=== PATIENT | female | born 2000 | race Caucasian/White ===

== ENCOUNTER 2020-09-20 05:27 | Emergency (ER) | payer SELFPAY ==
[2020-09-20] MEDS ORDERED: Ketorolac 30 MG/ML SDV IVPUSH ONE (05:47)
[2020-09-20] MEDS ORDERED: Sodium Chloride 0.9% 10 ML Syringe FLUSH PRN (05:47)
[2020-09-20] MEDS ORDERED: Sodium Chloride 0.9% 1,000 ML IV ONE (05:47)
[2020-09-20] MEDS ORDERED: Sodium Chloride 0.9% 2.5 ML Syringe FLUSH PRN (05:47)
[2020-09-20] MEDS ORDERED: Ondansetron 4 MG/2 ML SDV IVPUSH ONE (05:47)
[2020-09-20 06:12] LABS: BLOOD UREA NITROGEN,BUN 16 mg/dL (7.0-18.0); CARBON DIOXIDE,CO2 26.6 mmol/L (21.0-32.0); CHLORIDE,CL 103 mmol/L (98-107); GLUCOSE RANDOM 107 mg/dL (74-106); LIPASE 124 U/L (73-393); POTASSIUM,K 3.9 mmol/L (3.5-5.1); SODIUM,NA 141 mmol/L (136-145)
--- NOTE | 2020-09-20 06:33 | CT ---
INDICATION: Left flank pain. COMPARISON: None TECHNIQUE: CT examination of the abdomen and pelvis was performed without intravenous contrast. Thin section axial images were obtained from the lung bases through the pubic symphysis. Oral contrast was not administered. Please note that all CT scans at this facility use dose modulation, iterative reconstruction, and/or weight-based dosing when appropriate to reduce radiation dose to as low as reasonably achievable. FINDINGS: LUNG BASES: The lung bases as visualized appear normal.The heart size is normal at the lung bases. LIVER/BILIARY SYSTEM:The liver is normal in size and configuration given the lack of intravenous contrast. There is no visible focal mass and there is no intra- or extra hepatic biliary ductal dilatation.The gall bladder appears normal. ADRENALS: Normal non-contrast appearance KIDNEYS, URETERS and BLADDER:Vague papillary hyperdensities noted bilaterally consistent with a mild medullary nephrocalcinosis pattern. This is probably due to renal tubular ectasia. No macroscopic calculi on the right. There are a few calculi on the left in the 1 millimeter range. Left hydronephrosis and left hydroureter is noted due to a 1 millimeter calculus at the inner orifice of the left ureterovesical junction. SPLEEN:Normal non-contrast appearance. PANCREAS: Normal non-contrast appearance. RETROPERITONEUM and MESENTERY: There is no mass, adenopathy or aortic aneurysm. GASTROINTESTINAL SYSTEM: There is no evidence of diverticulitis, colitis, mechanical obstruction, or appendicitis. The small bowel as visualized appears normal.Moderate diffuse fecal retention especially the rectosigmoid. PELVIS: No mass, adenopathy or free fluid. OSSEOUS STRUCTURES and ABDOMINAL WALL: There is an age-appropriate appearance of the osseous structures.No significant abdominal wall defect. OTHER: No free fluid or free air. IMPRESSION: 1. Left-sided obstructive uropathy due to a 1 millimeter calcified calculus at the inner orifice of the left ureterovesical junction. Nonobstructive intrarenal calculi on the left. None on the right. 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 2. Fecal retention without mechanical obstruction Please note that all CT scans at this facility use dose modulation, iterative reconstruction, and/or weight-based dosing when appropriate to reduce radiation dose to as low as reasonably achievable. Dictated by Andrae Bob MD @ Sep 20 2020 6:27AM Signed by Dr. Adnrae Bob @ Sep 20 2020 6:32AM
[2020-09-20] MEDS ORDERED: Morphine 4 MG/ML Syringe IVPUSH ONE (06:40)
--- NOTE | 2020-09-20 06:47 | EDM.PDOC ---
<Cem Osullivan - Last Filed: 09/20/20 06:42> ED HPI GENERAL MEDICAL PROBLEM - General Chief Complaint: Abdominal Pain Stated Complaint: ABD PAIN Time Seen by Provider: 09/20/20 05:36 - History of Present Illness INITIAL COMMENTS - FREE TEXT/NARRATIVE: HISTORY AND PHYSICAL: History of present illness: This is a 20-year-old female with no significant past medical history of hypertension, diabetes, liver, lung, kidney problems who presents ER today complaining of left-sided flank and left lower quadrant abdominal pain that started early this morning and woke her up. Patient reports she has no history of fevers, shakes, chills, vomiting, diarrhea, dysuria, frequency, urgency. Patient reports that her last bowel movement was 9 days ago which is normal for her. Patient reports that she woke today complaining of cramping sharp pain in the left lower quadrant and left side of her flanks. Patient denies any chest pain or shortness of breath. Patient denies any vaginal discharge. Patient reports her last menstrual period was 3 weeks ago. Patient denies any hematuria, melena, bright red blood per rectum. Patient denies any vomiting but was nauseous earlier today with the pain. Review of systems: As per history of present illness and below otherwise all systems reviewed and negative. Past medical history: As per history of present illness and as reviewed below otherwise noncontribu tory. Surgical history: As per history of present illness and as reviewed below otherwise noncontributory. Social history: No reported history of drug or alcohol abuse. Family history: As per history of present illness and as reviewed below otherwise noncontributory. Physical exam: Constitutional: Patient is oriented to person, place, and time. Appears well- developed and well-nourished. No distress. HEENT: Moist mucous membranes Head: Normocephalic and atraumatic Eyes: Right eye exhibits no discharge. Left eye exhibits no discharge. No scleral icterus Neck: Normal range of motion. No tracheal deviation present. Cardiovascular: Normal rate and regular rhythm. Pulmonary: Effort normal, no respiratory distress. Abd: Soft, nondistended, no rebound/guarding, no psoas or obturator signs, no tenderness at Mcberney's point, no Douglas's sign. Pt does not present with an exam that would be consistent with an acute surgical abdomen at this time, tenderness to palpation left flank and left lower quadrant. Musculoskeletal: Normal range of motion Neurologic: Alert and oriented to person, place and time. Skin: [place], warm and dry. Psychiatric: Normal mood and affect. Behavior is normal. Judgment and thought content normal. Nursing note and vital signs have been reviewed Diagnostics: CBC, CMP within normal limits. CT scan of the abdomen pelvis without contrast reveals a 1 mm left UVJ stone with a mild amount of hydroureter/hydronephrosis. Patient's urinalysis unremarkable. Therapeutics: 1 L NSS Toradol 30 mg IV Morphine 4 mg IV Flomax 0.4 mg p.o. Assessment and plan: This is a 20-year-old female who presents ER today complaining of left flank pain. Patient's evaluation ER is consistent with a left-sided kidney stone 1 mm at the UVJ with mild amount of hydroureter and hydronephrosis. Patient has been given Toradol and Zofran in the ER as well as 1 L of normal saline and is still complaining of some pain. Patient be given morphine 4 mg IV as well as Flomax 0.4 mg p.o. Given the size of the stone patient will likely be discharged home with a prescription for Flomax, Motrin, Ultram, Zofran and instructions to follow-up with urology. Reassessment at the time of disposition demonstrates that the patient is in no acute distress. The patient has remained stable throughout the entire ED visit and is without objective evidence for acute process requiring urgent intervention or hospitalization. The patient is stable for discharge, counseling is provided as documented above, discussed symptomatic treatment and specific conditions for return. I have spoken with the patient/caregiver and discussed todays findings, in addition to providing specific details for the plan of care. Questions are answered and there is agreement with the plan. Definitive disposition and diagnosis as appropriate pending reevaluation and review of above. Abdomen Pain Score (Numeric/FACES): 7 - Related Data Allergies Allergy/AdvReac Type Severity Reaction Status Date / Time No Known Allergies Allergy Verified 09/20/20 05:33 Home Meds: Home Meds Ibuprofen 600 mg PO Q6HR PRN #30 tablet 09/20/20 [Rx] Ondansetron [Zofran ODT] 4 mg PO Q6H PRN #12 tab.dis 09/20/20 [Rx] Tamsulosin [Tamsulosin 24 Hr] 0.4 mg PO BEDTIME #7 cap.er 09/20/20 [Rx] traMADol [Ultram] 50 mg PO Q6H PRN #12 tab 09/20/20 [Rx] Past Medical History HEENT History: Reports: Allergic Rhinitis Cardiovascular History: Reports: None Respiratory History: Reports: None Gastrointestinal History: Reports: None Genitourinary History: Reports: None GRAZING AIDE History: Reports: None Musculoskeletal History: Reports: None Neurological History: Reports: None Psychiatric History: Reports: None Endocrine/Metabolic History: Reports: None Insulin Pump Model and Compositor Apprentice: none Hematologic History: Reports: None Immunologic History: Reports: None Oncologic (Cancer) History: Reports: None Dermatologic History: Reports: None - Infectious Disease History Infectious Disease History: Reports: None - Past Surgical History Head Surgeries/Procedures: Reports: None Social & Family History - Tobacco Use Tobacco Use Status *Q: Never Tobacco User - Caffeine Use Caffeine Use: Reports: Coffee, Soda - Recreational Drug Use Recreational Drug Use: No ED ROS GENERAL - Review of Systems Review Of Systems: See Below ED EXAM, GENERAL - Physical Exam Exam: See Below Departure - Departure Time of Disposition: 06:47 Disposition: Home, Self-Care 01 Condition: Good Clinical Impression: Hydroureter, left, Kidney stone on left side - Discharge Information Prescriptions: Tamsulosin [Tamsulosin 24 Hr] 0.4 mg PO BEDTIME #7 cap.er Ibuprofen 600 mg PO Q6HR PRN #30 tablet PRN Reason: Pain traMADol [Ultram] 50 mg PO Q6H PRN #12 tab PRN Reason: Pain Ondansetron [Zofran ODT] 4 mg PO Q6H PRN #12 tab.dis PRN Reason: Nausea Instructions: Renal Colic, [id number] Referrals: PCP,None [Primary Care Provider] - Forms: ED Department Discharge Additional Instructions: You were seen and evaluated in the ER today secondary to flank pain on the left side. This was found to be secondary to a small 1 mm kidney stone that is causing some swelling to your left kidney. You will be discharged with pain medicines as well as nausea medicine and the phone number for urologist to foll ow-up with. You will be given a prescription for 1. Ibuprofen 600 mg to take every 6 hours as needed for pain. 2. Ultram 50 mg to take every 6 hours as needed for pain not relieved with ibuprofen. 3. Zofran 4 mg ODT to take every 6 hours as needed for nausea 4. Flomax 0.4 mg to take every night to help you push the stone out of your ureter. [facility] - Urology [address] [place] [id number] The following information is given to patients seen in the emergency department who are being discharged to home. This information is to outline your options for follow-up care. We provide all patients seen in our emergency department with a follow-up referral. The need for follow-up, as well as the timing and circumstances, are variable depending upon the specifics of your emergency department visit. If you don't have a primary care physician on staff, we will provide you with a referral. We always advise you to contact your personal physician following an emergency department visit to inform them of the circumstance of the visit and for follow-up with them and/or the need for any referrals to a consulting specialist. The emergency department will also refer you to a specialist when appropriate. This referral assures that you have the opportunity for follow-up care with a specialist. All of these measure are taken in an effort to provide you with optimal care, which includes your follow-up. Under all circumstances we always encourage you to contact your private physician who remains a resource for coordinating your care. When calling for follow-up care, please make the office aware that this follow-up is from your recent emergency room visit. If for any reason you are refused follow-up, please contact the [facility] Emergency Department at and asked to speak to the emergency department charge nurse. [facility] - Primary Care [address] [place] [id number] [address] Sepsis Event Note (ED) - Evaluation Sepsis Screening Result: No Definite Risk <Enio Hoffman - Last Filed: 09/20/20 08:16> Course - Vital Signs Text/Narrative:: 08:15 feels better 07:41 AM. The patient was turned over to me at the end of my partner shift. She still has pain 5 out of 10 in severity. She has had severe pain since 3 AM. The patient has a 1 mm stone at the UVJ. We will try Flomax and some additional pain medicine and apparently this patient can safely go home if I can get her symptoms under control. Last Recorded V/S: Last Vital Signs Temp 36.6 C 09/20/20 05:30 Pulse 79 09/20/20 07:52 Resp 16 09/20/20 07:52 BP 112/72 09/20/20 07:52 Pulse Ox 96 09/20/20 07:52 - Orders/Labs/Meds Orders: Active Orders 24 hr Category Date Time Status Sodium Chloride 0.9% [Normal Saline] 500 ml Med 09/20/20 07:45 Active IV .BOLUS Sodium Chloride 0.9% [Saline Flush] Med 09/20/20 05:47 Active 10 ml FLUSH ASDIRECTED PRN Sodium Chloride 0.9% [Saline Flush] Med 09/20/20 05:47 Active 2.5 ml FLUSH ASDIRECTED PRN Saline Lock Insert [OM.PC] Stat Oth 09/20/20 05:47 Ordered Medication Orders Sodium Chloride (Normal Saline) 500 mls @ 1,000 mls/hr IV .BOLUS ELIA Last Admin: 09/20/20 07:47 Dose: 1,000 mls/hr Documented by: JAZMYN Sodium Chloride (Saline Flush) 10 ml FLUSH ASDIRECTED PRN PRN Reason: Keep Vein Open Last Admin: 09/20/20 07:48 Dose: 10 ml Documented by: JAZMYN Sodium Chloride (Saline Flush) 2.5 ml FLUSH ASDIRECTED PRN PRN Reason: Keep Vein Open Last Admin: 09/20/20 07:48 Dose: 2.5 ml Documented by: JAZMYN Labs: Laboratory Tests 09/20/20 09/20/20 09/20/20 Range/Units 05:35 05:35 05:45 WBC 11.82 H (4.0-11.0) K/uL RBC 5.07 (4.30-5.90) M/uL Hgb 14.3 (12.0-16.0) g/dL Hct 41.9 (36.0-46.0) % MCV 82.6 (80.0-98.0) fL MCH 28.2 (27.0-32.0) pg MCHC 34.1 (31.0-37.0) g/dL RDW Std Deviation 37.4 (28.0-62.0) fl RDW Coeff of Kirit 13 (11.0-15.0) % Plt Count 274 (150-400) K/uL MPV 9.10 (7.40-12.00) fL Neut % (Auto) 69.2 (48.0-80.0) % Lymph % (Auto) 22.8 (16.0-40.0) % Martin % (Auto) 6.3 (0.0-15.0) % Eos % (Auto) 1.4 (0.0-7.0) % Baso % (Auto) 0.3 (0.0-1.5) % Neut # (Auto) 8.2 H (1.4-5.7) K/uL Lymph # (Auto) 2.7 H (0.6-2.4) K/uL Martin # (Auto) 0.8 (0.0-0.8) K/uL Eos # (Auto) 0.2 (0.0-0.7) K/uL Baso # (Auto) 0.0 (0.0-0.1) K/uL Nucleated RBC % 0.0 /100WBC Nucleated RBCs # 0 K/uL Sodium 141 (136-145) mmol/L Potassium 3.9 (3.5-5.1) mmol/L Chloride 103 (98-107) mmol/L Carbon Dioxide 26.6 (21.0-32.0) mmol/L BUN 16 (7.0-18.0) mg/dL Creatinine 1.1 H (0.6-1.0) mg/dL Est Cr Clr Drug Dosing 78.67 mL/min Estimated GFR (MDRD) > 60.0 ml/min Glucose 107 H (74-106) mg/dL Calcium 9.0 (8.5-10.1) mg/dL Total Bilirubin 0.5 (0.2-1.0) mg/dL AST 12 L (15-37) IU/L ALT 16 (14-63) IU/L Alkaline Phosphatase 68 (46-116) U/L Total Protein 6.9 (6.4-8.2) g/dL Albumin 4.0 (3.4-5.0) g/dL Globulin 2.9 (2.6-4.0) g/dL Albumin/Globulin Ratio 1.4 (0.9-1.6) Lipase 124 (73-393) U/L Urine Color YELLOW Urine Appearance SLT CLOUDY Urine pH 5.5 (5.0-8.0) Ur Specific Kennedy >= 1.030 (1.001-1.035) Urine Protein NEGATIVE (NEGATIVE) mg/dL Urine Glucose (UA) NEGATIVE (NEGATIVE) mg/dL Urine Ketones NEGATIVE (NEGATIVE) mg/dL Urine Occult Blood TRACE-INTACT H (NEGATIVE) Urine Nitrite NEGATIVE (NEGATIVE) Urine Bilirubin NEGATIVE (NEGATIVE) Urine Urobilinogen 0.2 (<2.0) EU/dL Ur Leukocyte Esterase NEGATIVE (NEGATIVE) Urine RBC 0-2 (0-2/HPF) Urine WBC 0-2 (0-5/HPF) Ur Epithelial Cells FEW (NONE-FEW) Urine Bacteria 1+ H (NEGATIVE) Urine Mucus LIGHT (NONE-MOD) Urine HCG, Qual (NEGATIVE) 09/20/20 Range/Units 05:50 WBC (4.0-11.0) K/uL RBC (4.30-5.90) M/uL Hgb (12.0-16.0) g/dL Hct (36.0-46.0) % MCV (80.0-98.0) fL MCH (27.0-32.0) pg MCHC (31.0-37.0) g/dL RDW Std Deviation (28.0-62.0) fl RDW Coeff of Kirit (11.0-15.0) % Plt Count (150-400) K/uL MPV (7.40-12.00) fL Neut % (Auto) (48.0-80.0) % Lymph % (Auto) (16.0-40.0) % Martin % (Auto) (0.0-15.0) % Eos % (Auto) (0.0-7.0) % Baso % (Auto) (0.0-1.5) % Neut # (Auto) (1.4-5.7) K/uL Lymph # (Auto) (0.6-2.4) K/uL Martin # (Auto) (0.0-0.8) K/uL Eos # (Auto) (0.0-0.7) K/uL Baso # (Auto) (0.0-0.1) K/uL Nucleated RBC % /100WBC Nucleated RBCs # K/uL Sodium (136-145) mmol/L Potassium (3.5-5.1) mmol/L Chloride (98-107) mmol/L Carbon Dioxide (21.0-32.0) mmol/L BUN (7.0-18.0) mg/dL Creatinine (0.6-1.0) mg/dL Est Cr Clr Drug Dosing mL/min Estimated GFR (MDRD) ml/min Glucose (74-106) mg/dL Calcium (8.5-10.1) mg/dL Total Bilirubin (0.2-1.0) mg/dL AST (15-37) IU/L ALT (14-63) IU/L Alkaline Phosphatase (46-116) U/L Total Protein (6.4-8.2) g/dL Albumin (3.4-5.0) g/dL Globulin (2.6-4.0) g/dL Albumin/Globulin Ratio (0.9-1.6) Lipase (73-393) U/L Urine Color Urine Appearance Urine pH (5.0-8.0) Ur Specific Kennedy (1.001-1.035) Urine Protein (NEGATIVE) mg/dL Urine Glucose (UA) (NEGATIVE) mg/dL Urine Ketones (NEGATIVE) mg/dL Urine Occult Blood (NEGATIVE) Urine Nitrite (NEGATIVE) Urine Bilirubin (NEGATIVE) Urine Urobilinogen (<2.0) EU/dL Ur Leukocyte Esterase (NEGATIVE) Urine RBC (0-2/HPF) Urine WBC (0-5/HPF) Ur Epithelial Cells (NONE-FEW) Urine Bacteria (NEGATIVE) Urine Mucus (NONE-MOD) Urine HCG, Qual NEGATIVE (NEGATIVE) Meds: Medications Generic Name Dose Route Start Last Admin Trade Name Freq PRN Reason Stop Dose Admin Sodium Chloride 500 mls @ 1,000 mls/hr 09/20/20 07:45 09/20/20 07:47 Normal Saline IV 1,000 mls/hr .BOLUS ELIA Administration Sodium Chloride 10 ml 09/20/20 05:47 09/20/20 07:48 Saline Flush FLUSH 10 ml ASDIRECTED PRN Administration Keep Vein Open Sodium Chloride 2.5 ml 09/20/20 05:47 09/20/20 07:48 Saline Flush FLUSH 2.5 ml ASDIRECTED PRN Administration Keep Vein Open Discontinued Medications Generic Name Dose Route Start Last Admin Trade Name Dontrell PRN Reason Stop Dose Admin Hydromorphone HCl 0.5 mg 09/20/20 07:39 09/20/20 07:47 Dilaudid IVPUSH 09/20/20 07:40 0.5 mg ONETIME ONE Administration Sodium Chloride 1,000 mls @ 999 mls/hr 09/20/20 05:47 09/20/20 05:54 Normal Saline IV 09/20/20 06:47 999 mls/hr .Bolus ONE Administration Ketorolac Tromethamine 30 mg 09/20/20 05:47 09/20/20 05:54 Toradol IVPUSH 09/20/20 05:48 30 mg ONETIME ONE Administration Morphine Sulfate 4 mg 09/20/20 06:40 09/20/20 06:48 Morphine IVPUSH 09/20/20 06:41 4 mg ONETIME ONE Administration Ondansetron HCl 4 mg 09/20/20 05:47 09/20/20 05:54 Zofran IVPUSH 09/20/20 05:48 4 mg ONETIME ONE Administration Tamsulosin HCl 0.4 mg 09/20/20 07:00 09/20/20 07:48 Flomax PO 09/20/20 07:01 0.4 mg ONETIME ONE Administration Departure - Departure Time of Disposition: 08:20 Sepsis Event Note (ED) - Focused Exam Vital Signs: Vital Signs Temp Pulse Resp BP Pulse Ox 09/20/20 07:52 79 16 112/72 96 09/20/20 05:30 36.6 C 82 18 122/75 98 - My Orders Last 24 Hours: My Active Orders 09/20/20 07:45 Sodium Chloride 0.9% [Normal Saline] 500 ml IV .BOLUS - Assessment/Plan Last 24 Hours: My Active Orders 09/20/20 07:45 Sodium Chloride 0.9% [Normal Saline] 500 ml IV .BOLUS
[2020-09-20] MEDS ORDERED: Tamsulosin 0.4 MG Cap.ER PO ONE (07:00)
[2020-09-20] MEDS ORDERED: HYDROmorphone 1 MG/ML Syringe IVPUSH ONE (07:39)
[2020-09-20] MEDS ORDERED: Sodium Chloride 0.9% 500 ML IV SCH (07:45)
== END 2020-09-20 08:33 | disposition home or self-care (01) ==
LOC: MW.ED 05:27
DX: N13.2 Hydronephrosis with renal and ureteral calculous obstruction (principal); I10 Essential (primary) hypertension; E11.9 Type 2 diabetes mellitus without complications; Z79.899 Other long term (current) drug therapy
CPT/HCPCS: 36415; 74176; 80053; 81001; 81025; 83690; 85025; 96374; 96375; 99284; A9270; J1170; J1885; J2270; J2405; J7030; J7040